=== PATIENT | female | born 1995 | race Caucasian/White ===

== ENCOUNTER 2018-01-02 22:28 | Emergency (ER) | payer SELFPAY ==
[2018-01-02 22:47] VITALS: BP 132/75
--- NOTE | 2018-01-02 23:04 | EDM.PDOC ---
ED HPI GENERAL MEDICAL PROBLEM - General Chief Complaint: General Stated Complaint: SOB Time Seen by Provider: 01/02/18 22:34 Source of Information: Reports: Patient History Limitations: Reports: No Limitations - History of Present Illness INITIAL COMMENTS - FREE TEXT/NARRATIVE: One day history of sinus pressure, ear pressure, sore throat, body aches, and heavy chest. No cough/runny nose reported. Feels painful/tight at base of neck. Denies swelling of tongue/cough/wheezing. Smoker. No one else sick at home. No GI/ changes. No rashes. Treatments PAYROLL LEAD: Reports: Other (see below) Other Treatments PAYROLL LEAD: took mucinex at 1430. - Related Data Allergies Allergy/AdvReac Type Severity Reaction Status Date / Time amoxicillin [Amoxicillin] Allergy Cannot Verified 09/02/15 18:38 Remember hydrocodone Allergy Itching Verified 09/02/15 18:38 Penicillins Allergy Cannot Verified 09/02/15 18:38 Remember Home Meds: Home Meds Norethindrone-Ethinyl Estrad [Alyacen] 1 each PO ASDIRECTED 01/02/18 [History] Past Medical History HEENT History: Reports: None. 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: Other (See Below) Other UX UI DESIGNER History: Current Norplant with LMP on 07/07/15 with patient getting monthly menses despite her Norplant, right ovarian cyst in 2008 with spontaneous resolution Musculoskeletal History: Reports: None Neurological History: Reports: Concussion Psychiatric History: Reports: Anxiety, Depression Endocrine/Metabolic History: Reports: None Hematologic History: Reports: None Immunologic History: Reports: None Oncologic (Cancer) History: Reports: None - Infectious Disease History Infectious Disease History: Reports: Chicken Pox - Past Surgical History Head Surgeries/Procedures: Reports: None HEENT Surgical History: Reports: Oral Surgery Cardiovascular Surgical History: Reports: None Respiratory Surgical History: Reports: None GI Surgical History: Reports: None Female Surgical History: Reports: Other (See Below) Endocrine Surgical History: Reports: None Neurological Surgical History: Reports: None Musculoskeletal Surgical History: Reports: None Oncologic Surgical History: Reports: None Dermatological Surgical History: Reports: None - Past Imaging History Past Imaging History: Reports: CAT Scan, Ultrasound Social & Family History - Tobacco Use Smoking Status *Q: Current Every Day Smoker Years of Tobacco use: 10 Packs/Tins Daily: 0.5 - Caffeine Use Caffeine Use: Reports: Coffee (3 cups per day), Soda (1 soda 2 times per week). Denies: Energy Drinks, Tea - Living Situation & Occupation Living situation: Reports: with Family Occupation: Employed ED ROS GENERAL - Review of Systems Review Of Systems: See Below Constitutional: Reports: Chills, Malaise. Denies: Fever, Diaphoresis HEENT: Reports: Ear Pain, Sinus Problem (pressure), Throat Pain. Denies: Ear Discharge, Eye Discharge, Eye Pain, Throat Swelling, Vertigo, Vision Change Respiratory: Reports: Pleuritic Chest Pain (has generalized body aches, chest aches get worse with deep breath), Other (chest feels heavy). Denies: Shortness of Breath, Wheezing, Cough, Sputum, Hemoptysis Cardiovascular: Denies: Dyspnea on Exertion, Lightheadedness, Palpitations, Syncope GI/Abdominal: Reports: No Symptoms : Reports: No Symptoms Musculoskeletal: Reports: Muscle Pain (generalized aches) Skin: Reports: No Symptoms Neurological: Reports: No Symptoms. Denies: Headache Psychiatric: Reports: No Symptoms Hematologic/Lymphatic: Reports: No Symptoms. Denies: Swollen Glands Immunologic: Reports: No Symptoms ED EXAM, GENERAL - Physical Exam Exam: See Below Exam Limited By: No Limitations General Appearance: Alert, WD/WN, Other (looks uncomfortable, no acute distress however) Eye Exam: Bilateral Eye: EOMI, PERRL Ears: Normal External Exam, Normal Canal, Hearing Grossly Normal, Normal TMs Nose: No: Nasal Deformity, Nasal Swelling, Nasal Drainage Throat/Mouth: Normal Inspection, Normal Lips, Normal Teeth, Normal Gums, Normal Oropharynx, Normal Voice, No Airway Compromise Head: Atraumatic, Normocephalic Neck: Normal Inspection, Supple, Non-Tender, Full Range of Motion. No: Lymphadenopathy (L), Lymphadenopathy (R) Respiratory/Chest: No Respiratory Distress, Lungs Clear, Normal Breath Sounds, No Accessory Muscle Use Cardiovascular: Normal Peripheral Pulses, Regular Rate, Rhythm, No Murmur Peripheral Pulses: 2+: Radial (L), Radial (R) GI/Abdominal: Normal Bowel Sounds, Soft, Non-Tender, No Distention (Female) Exam: Deferred Rectal (Female) Exam: Deferred Back Exam: No: CVA Tenderness (L), CVA Tenderness (R) Extremities: Normal Inspection, Normal Range of Motion, Normal Capillary Refill Neurological: Alert, Oriented, Normal Cognition, Normal Gait, No Motor/Sensory Deficits Psychiatric: Normal Affect, Normal Mood Skin Exam: Warm, Dry, Intact, Normal Color Course - Vital Signs Last Recorded V/S: Last Vital Signs Temp 36.7 C 01/02/18 22:45 Pulse 85 01/02/18 22:45 Resp 16 01/02/18 22:45 BP 132/75 01/02/18 22:45 Pulse Ox 100 01/02/18 22:45 - Orders/Labs/Meds Orders: Active Orders 24 hr Category Date Time Status RT Aerosol Therapy [RC] ASDIRECTED Care 01/02/18 23:24 Ordered Chest 2V [CR] Stat Exams 01/02/18 23:07 Ordered CULTURE STREP A CONFIRMATION [RM] Stat Lab 01/02/18 22:40 Results HCG QUALITATIVE,URINE [URCHEM] Stat Lab 01/02/18 23:15 Received STREP SCRN A RAPID W CULT CONF [RM] Stat Lab 01/02/18 22:40 Results UA W/MICROSCOPIC [URIN] Stat Lab 01/02/18 23:15 Ordered Labs: Laboratory Tests 01/02/18 01/02/18 01/02/18 Range/Units 23:07 23:07 23:07 WBC 12.2 H (4.0-10.2) K/uL RBC 4.10 (3.77-5.09) M/uL Hgb 13.0 (11.7-15.5) g/dL Hct 38.8 (34.0-46.0) % MCV 94.6 D (84.0-98.0) fL MCH 31.7 (28.2-33.3) pg MCHC 33.5 (31.7-36.0) g/dL RDW 12.0 (11.2-14.1) % Plt Count 192 (150-350) K/uL Neut % (Auto) 78.8 (45.0-80.0) % Lymph % (Auto) 11.9 (10.0-50.0) % Garza % (Auto) 7.0 (2.0-14.0) % Eos % (Auto) 2.1 (0.0-5.0) % Baso % (Auto) 0.2 (0.0-2.0) % Neut # (Auto) 9.59 H (1.40-7.00) K/uL Lymph # (Auto) 1.45 (0.50-3.50) K/uL Garza # (Auto) 0.85 (0.00-1.00) K/uL Eos # (Auto) 0.26 (0.00-0.50) K/uL Baso # (Auto) 0.02 (0.00-0.20) K/uL Sodium 139 (136-145) mmol/L Potassium 3.8 (3.5-5.1) mmol/L Chloride 106 (98-107) mmol/L Carbon Dioxide 24.2 (21.0-32.0) mmol/L BUN 7 (7-18) mg/dL Creatinine 0.83 (0.51-1.17) mg/dL Est Cr Clr Drug Dosing TNP Estimated GFR (MDRD) > 60 mL/min Glucose 110 H (74-106) mg/dL Calcium 8.9 (8.5-10.1) mg/dL Total Bilirubin 0.3 (0.2-1.0) mg/dL AST 15 (15-37) U/L ALT 17 (12-78) U/L Alkaline Phosphatase 49 (46-116) IU/L Total Protein 8.2 (6.4-8.2) g/dL Albumin 3.9 (3.4-5.0) g/dL Specimen Type Urine Color Urine Appearance Urine pH (5.0-9.0) Ur Specific [place] (1.005-1.030) Urine Protein (NEGATIVE) mg/dL Urine Glucose (UA) (NEGATIVE) mg/dL Urine Ketones (NEGATIVE) mg/dL Urine Occult Blood (NEGATIVE) Urine Nitrite (NEGATIVE) Urine Bilirubin (NEGATIVE) Urine Urobilinogen (0.2-1.0) E.U./dL Ur Leukocyte Esterase (NEGATIVE) Urine RBC /HPF Urine WBC /HPF Ur Epithelial Cells /LPF Urine Bacteria (NONE TO FEW) /HPF Urine Mucus (NEGATIVE) /LPF Urine Yeast (NEGATIVE) /HPF Urine HCG, Qual Monoscreen Negative (NEGATIVE) 01/02/18 01/02/18 Range/Units 23:15 23:15 WBC (4.0-10.2) K/uL RBC (3.77-5.09) M/uL Hgb (11.7-15.5) g/dL Hct (34.0-46.0) % MCV (84.0-98.0) fL MCH (28.2-33.3) pg MCHC (31.7-36.0) g/dL RDW (11.2-14.1) % Plt Count (150-350) K/uL Neut % (Auto) (45.0-80.0) % Lymph % (Auto) (10.0-50.0) % Garza % (Auto) (2.0-14.0) % Eos % (Auto) (0.0-5.0) % Baso % (Auto) (0.0-2.0) % Neut # (Auto) (1.40-7.00) K/uL Lymph # (Auto) (0.50-3.50) K/uL Garza # (Auto) (0.00-1.00) K/uL Eos # (Auto) (0.00-0.50) K/uL Baso # (Auto) (0.00-0.20) K/uL Sodium (136-145) mmol/L Potassium (3.5-5.1) mmol/L Chloride (98-107) mmol/L Carbon Dioxide (21.0-32.0) mmol/L BUN (7-18) mg/dL Creatinine (0.51-1.17) mg/dL Est Cr Clr Drug Dosing Estimated GFR (MDRD) mL/min Glucose (74-106) mg/dL Calcium (8.5-10.1) mg/dL Total Bilirubin (0.2-1.0) mg/dL AST (15-37) U/L ALT (12-78) U/L Alkaline Phosphatase (46-116) IU/L Total Protein (6.4-8.2) g/dL Albumin (3.4-5.0) g/dL Specimen Type Urinblad Urine Color Yellow Urine Appearance Clear Urine pH 7.0 (5.0-9.0) Ur Specific [place] 1.020 (1.005-1.030) Urine Protein Negative (NEGATIVE) mg/dL Urine Glucose (UA) Negative (NEGATIVE) mg/dL Urine Ketones Negative (NEGATIVE) mg/dL Urine Occult Blood Trace-lysed H (NEGATIVE) Urine Nitrite Negative (NEGATIVE) Urine Bilirubin Negative (NEGATIVE) Urine Urobilinogen 0.2 (0.2-1.0) E.U./dL Ur Leukocyte Esterase Negative (NEGATIVE) Urine RBC 0-5 /HPF Urine WBC 0-5 /HPF Ur Epithelial Cells Few /LPF Urine Bacteria Few (NONE TO FEW) /HPF Urine Mucus Few H (NEGATIVE) /LPF Urine Yeast Rare H (NEGATIVE) /HPF Urine HCG, Qual Negative Monoscreen (NEGATIVE) Meds: Medications Discontinued Medications Generic Name Dose Route Start Last Admin Trade Name Jerry PRN Reason Stop Dose Admin Acetaminophen 650 mg 01/02/18 23:24 01/02/18 23:33 Tylenol PO 01/02/18 23:25 650 mg NOW ONE Administration Albuterol/Ipratropium 3 ml 01/02/18 23:24 01/02/18 23:35 Duoneb 3.0-0.5 Mg/3 Ml NEB 01/02/18 23:25 3 ml ONETIME ONE Administration - Radiology Interpretation Free Text/Narrative:: chest film unremarkable for infiltrate/acute abnormalities - Re-Assessments/Exams Free Text/Narrative Re-Assessment/Exam: 01/02/18 23:32 Strep screen ordered. Negative. Additional testing ordered, including basic labs, Garza test, chest xray. Patient given Tylenol. Neb given to see if any subjective change in sensation chest heaviness. 01/03/18 00:08 Patient felt like neb improved chest heaviness. VS remained stable. Sats 100%. No signs of respiratory compromise. Garza negative. WBC very mildly elevated. Labs otherwise overall unremarkable. Suspect acute viral syndrome based on history/exam. Patient given work note for 48 hrs to stay home due to illness as she works in a [employer]. Will go home with Ventolin inhaler to help with sensation of chest heaviness/tightness. Smoking cessation encouraged. Precautions reviewed. To follow up as needed. Strep culture pending Departure - Departure Time of Disposition: 00:11 Disposition: Home, Self-Care 01 Condition: Good Clinical Impression: Viral syndrome - Discharge Information Instructions: Viral Illness, Adult Referrals: PCP,Unknown [Primary Care Provider] - Forms: ED Department Discharge, ED Return to Work/School Form Additional Instructions: Watch for changes. Follow up as needed if you have problems or this does not appear to follow a normal viral course. If your strep culture is positive we will contact you. - My Orders Last 24 Hours: My Active Orders 01/02/18 22:40 CULTURE STREP A CONFIRMATION [RM] Stat STREP SCRN A RAPID W CULT CONF [RM] Stat 01/02/18 23:07 Chest 2V [CR] Stat 01/02/18 23:15 HCG QUALITATIVE,URINE [URCHEM] Stat UA W/MICROSCOPIC [URIN] Stat 01/02/18 23:24 RT Aerosol Therapy [RC] ASDIRECTED - Assessment/Plan Last 24 Hours: My Active Orders 01/02/18 22:40 CULTURE STREP A CONFIRMATION [RM] Stat STREP SCRN A RAPID W CULT CONF [RM] Stat 01/02/18 23:07 Chest 2V [CR] Stat 01/02/18 23:15 HCG QUALITATIVE,URINE [URCHEM] Stat UA W/MICROSCOPIC [URIN] Stat 01/02/18 23:24 RT Aerosol Therapy [RC] ASDIRECTED
[2018-01-02 23:25] LABS: CHLORIDE,CL 106 mmol/L (98-107); SODIUM,NA 139 mmol/L (136-145)
[2018-01-02] MEDS: Acetaminophen 325 MG Tab PO ONE (23:33)
[2018-01-02] MEDS: Albuterol/Ipratropium 3.0-0.5 MG/3 ML Neb Soln NEB ONE (23:35)
== END 2018-01-03 00:30 | disposition home or self-care (01) ==
LOC: LL.ED 22:28
DX: B34.9 Viral infection, unspecified (principal); K21.9 Gastro-esophageal reflux disease without esophagitis; F17.210 Nicotine dependence, cigarettes, uncomplicated; Z88.0 Allergy status to penicillin; Z88.1 Allergy status to other antibiotic agents; Z88.5 Allergy status to narcotic agent; Z87.442 Personal history of urinary calculi
CPT/HCPCS: 36415; 71046; 80053; 81001; 81025; 85025; 86308; 87081; 87430; 94640; 99283; A9270

== ENCOUNTER 2018-07-26 17:00 | Emergency (ER) | payer BC, OTHER ==
[2018-07-26 17:19] VITALS: BP 136/77
[2018-07-26] MEDS ORDERED: Sodium Chloride 0.9% 10 ML Syringe FLUSH PRN (17:26)
[2018-07-26] MEDS ORDERED: Sodium Chloride 0.9% 1,000 ML IV SCH (17:30)
--- NOTE | 2018-07-26 17:34 | EDM.PDOC ---
ED HPI GENERAL MEDICAL PROBLEM - General Chief Complaint: General Stated Complaint: Headache, S/P epidural pain injection Time Seen by Provider: 07/26/18 17:00 Source of Information: Reports: Patient History Limitations: Reports: No Limitations - History of Present Illness INITIAL COMMENTS - FREE TEXT/NARRATIVE: Patient is a fifth 23-year-old female seen in the ER with chief complaint of severe headache patient states that she had an epidural injection yesterday for chronic back pain. Onset: Sudden Duration: Day(s): (One day ago), Getting Worse Location: Reports: Head Quality: Reports: Ache, Throbbing Severity: Moderate Improves with: Reports: None Worsens with: Reports: Other (Light) Context: Reports: Activity Associated Symptoms: Reports: Headaches Headache Pain Score (Numeric/FACES): 8 - Related Data Allergies Allergy/AdvReac Type Severity Reaction Status Date / Time amoxicillin [Amoxicillin] Allergy Cannot Verified 07/26/18 17:17 Remember hydrocodone Allergy Itching Verified 07/26/18 17:17 Penicillins Allergy Cannot Verified 07/26/18 17:17 Remember Home Meds: Home Meds Acetaminophen [Tylenol] 650 mg PO Q6HR PRN 07/26/18 [History] Acetaminophen/Caffeine [Excedrin Tension Headache Cplt] 1 each PO DAILY PRN [History] Baclofen 10 mg PO TID PRN 07/26/18 [History] Cyclobenzaprine [Flexeril] 5 mg PO Q12HR PRN 07/26/18 [History] Ibuprofen 800 mg PO TID PRN 07/26/18 [History] Loratadine 10 mg PO DAILY PRN 07/26/18 [History] Meloxicam 15 mg PO BEDTIME 07/26/18 [History] Past Medical History HEENT History: Reports: None. 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 History: Current Norplant with LMP on 07/07/15 with patient getting monthly menses despite her Norplant, right ovarian cyst in 2008 with spontaneous resolution Musculoskeletal History: Reports: None Neurological History: Reports: Concussion Psychiatric History: Reports: Anxiety, Depression Endocrine/Metabolic History: Reports: None Hematologic History: Reports: None Immunologic History: Reports: None Oncologic (Cancer) History: Reports: None - Infectious Disease History Infectious Disease History: Reports: Chicken Pox - Past Surgical History Head Surgeries/Procedures: Reports: None HEENT Surgical History: Reports: Oral Surgery Cardiovascular Surgical History: Reports: None Respiratory Surgical History: Reports: None GI Surgical History: Reports: None Female Surgical History: Reports: Other (See Below) Endocrine Surgical History: Reports: None Neurological Surgical History: Reports: None Musculoskeletal Surgical History: Reports: None Oncologic Surgical History: Reports: None Dermatological Surgical History: Reports: None - Past Imaging History Past Imaging History: Reports: CAT Scan, Ultrasound Social & Family History - Caffeine Use Caffeine Use: Reports: Coffee (3 cups per day), Soda (1 soda 2 times per week). Denies: Energy Drinks, Tea - Living Situation & Occupation Living situation: Reports: with Family Occupation: Employed ED ROS GENERAL - Review of Systems Review Of Systems: See Below Constitutional: Reports: No Symptoms HEENT: Reports: No Symptoms Respiratory: Reports: No Symptoms, Other (Smoker) Cardiovascular: Reports: No Symptoms Endocrine: Reports: No Symptoms GI/Abdominal: Reports: No Symptoms : Reports: No Symptoms Musculoskeletal: Reports: No Symptoms Skin: Reports: No Symptoms Neurological: Reports: Headache Psychiatric: Reports: No Symptoms Hematologic/Lymphatic: Reports: No Symptoms Immunologic: Reports: No Symptoms ED EXAM, GENERAL - Physical Exam Exam: See Below Exam Limited By: No Limitations General Appearance: Alert, WD/WN, No Apparent Distress Nose: Normal Inspection, Normal Mucosa, No Blood Throat/Mouth: Normal Inspection, Normal Lips, Normal Teeth, Normal Gums, Normal Oropharynx, Normal Voice, No Airway Compromise Head: Atraumatic, Normocephalic Neck: Normal Inspection, Supple, Non-Tender, Full Range of Motion Respiratory/Chest: No Respiratory Distress, Lungs Clear, Normal Breath Sounds, No Accessory Muscle Use, Chest Non-Tender Cardiovascular: Normal Peripheral Pulses, Regular Rate, Rhythm, No Edema, No Gallop, No JVD, No Murmur, No Rub GI/Abdominal: Normal Bowel Sounds, Soft, Non-Tender, No Organomegaly, No Distention, No Abnormal Bruit, No Mass (Female) Exam: Deferred Rectal (Female) Exam: Deferred Back Exam: Other (Headaches) Extremities: Normal Inspection, Normal Range of Motion, Non-Tender, Normal Capillary Refill, No Pedal Edema Neurological: Alert, Oriented, CN II-XII Intact, Normal Cognition, Normal Reflexes, Other (Headaches) Psychiatric: Normal Affect, Normal Mood Skin Exam: Warm, Dry, Intact, Normal Color, No Rash Course - Vital Signs Last Recorded V/S: Last Vital Signs Temp 97.8 F 07/26/18 17:00 Pulse 90 07/26/18 17:00 Resp 16 07/26/18 17:00 BP 136/77 07/26/18 17:00 Pulse Ox 100 07/26/18 17:00 - Orders/Labs/Meds Orders: Active Orders 24 hr Category Date Time Status Sodium Chloride 0.9% [Normal Saline] 1,000 ml Med 07/26/18 17:30 Active IV ASDIRECTED Sodium Chloride 0.9% [Saline Flush] Med 07/26/18 17:26 Active 10 ml FLUSH ASDIRECTED PRN Saline Lock Insert [OM.PC] Stat Oth 07/26/18 17:27 Ordered Medication Orders Sodium Chloride (Normal Saline) 1,000 mls @ 999 mls/hr IV ASDIRECTED CHAN Sodium Chloride (Saline Flush) 10 ml FLUSH ASDIRECTED PRN PRN Reason: Keep Vein Open Labs: Laboratory Tests 07/26/18 07/26/18 Range/Units 17:32 17:32 WBC 8.2 (4.0-10.2) K/uL RBC 4.32 (3.77-5.09) M/uL Hgb 13.7 (11.7-15.5) g/dL Hct 41.3 (34.0-46.0) % MCV 95.6 (84.0-98.0) fL MCH 31.7 (28.2-33.3) pg MCHC 33.2 (31.7-36.0) g/dL RDW 12.0 (11.2-14.1) % Plt Count 217 (150-350) K/uL Neut % (Auto) 67.9 (45.0-80.0) % Lymph % (Auto) 23.4 (10.0-50.0) % [place] % (Auto) 6.5 (2.0-14.0) % Eos % (Auto) 2.1 (0.0-5.0) % Baso % (Auto) 0.1 (0.0-2.0) % Neut # (Auto) 5.58 (1.40-7.00) K/uL Lymph # (Auto) 1.92 (0.50-3.50) K/uL [place] # (Auto) 0.53 (0.00-1.00) K/uL Eos # (Auto) 0.17 (0.00-0.50) K/uL Baso # (Auto) 0.01 (0.00-0.20) K/uL Sodium 141 (136-145) mmol/L Potassium 3.7 (3.5-5.1) mmol/L Chloride 104 (98-107) mmol/L Carbon Dioxide 26.1 (21.0-32.0) mmol/L BUN 9 (7-18) mg/dL Creatinine 0.68 (0.51-1.17) mg/dL Est Cr Clr Drug Dosing TNP Estimated GFR (MDRD) > 60 mL/min Glucose 98 (74-106) mg/dL Calcium 9.6 (8.5-10.1) mg/dL Meds: Medications Generic Name Dose Route Start Last Admin Trade Name Freq PRN Reason Stop Dose Admin Sodium Chloride 1,000 mls @ 999 mls/hr 07/26/18 17:30 Normal Saline IV ASDIRECTED CHAN Sodium Chloride 10 ml 07/26/18 17:26 Saline Flush FLUSH ASDIRECTED PRN Keep Vein Open Departure - Departure Time of Disposition: 19:03 Disposition: Home, Self-Care 01 Clinical Impression: Persistent headaches - Discharge Information *PRESCRIPTION DRUG MONITORING PROGRAM REVIEWED*: No *COPY OF PRESCRIPTION DRUG MONITORING REPORT IN PATIENT CHANEL: No Instructions: Spinal Anesthesia and Epidural Anesthesia, Care After Referrals: Piedad Borrego PA-C [Primary Care Provider] - Forms: ED Department Discharge Care Plan Goals: ED HPI GENERAL MEDICAL PROBLEM - General Chief Complaint: General Stated Complaint: Headache, S/P epidural pain injection - History of Present Illness INITIAL COMMENTS - FREE TEXT/NARRATIVE: Patient is a fifth 23-year-old female seen in the ER with chief complaint of severe headache patient states that she had an epidural injection yesterday for chronic back pain. Onset: Sudden Duration: Day(s): (One day ago), Getting Worse Location: Reports: Head Quality: Reports: Ache, Throbbing Severity: Moderate Improves with: Reports: None Worsens with: Reports: Other (Light) Context: Reports: Activity Associated Symptoms: Reports: Headaches Headache Pain Score (Numeric/FACES): 8 - Related Data Allergies Allergy/AdvReac Type Severity Reaction Status Date / Time amoxicillin [Amoxicillin] Allergy Cannot Verified 07/26/18 17:17 Remember hydrocodone Allergy Itching Verified 07/26/18 17:17 Penicillins Allergy Cannot Verified 07/26/18 17:17 Remember Home Meds: Home Meds Acetaminophen [Tylenol] 650 mg PO Q6HR PRN 07/26/18 [History] Acetaminophen/Caffeine [Excedrin Tension Headache Cplt] 1 each PO DAILY PRN [History] Baclofen 10 mg PO TID PRN 07/26/18 [History] Cyclobenzaprine [Flexeril] 5 mg PO Q12HR PRN 07/26/18 [History] Ibuprofen 800 mg PO TID PRN 07/26/18 [History] Loratadine 10 mg PO DAILY PRN 07/26/18 [History] Meloxicam 15 mg PO BEDTIME 07/26/18 [History] Past Medical History HEENT History: Reports: None. 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 History: Current Norplant with LMP on 07/07/15 with patient getting monthly menses despite her Norplant, right ovarian cyst in 2008 with spontaneous resolution Musculoskeletal History: Reports: None Neurological History: Reports: Concussion Psychiatric History: Reports: Anxiety, Depression Endocrine/Metabolic History: Reports: None Hematologic History: Reports: None Immunologic History: Reports: None Oncologic (Cancer) History: Reports: None - Infectious Disease History Infectious Disease History: Reports: Chicken Pox - Past Surgical History Head Surgeries/Procedures: Reports: None HEENT Surgical History: Reports: Oral Surgery Cardiovascular Surgical History: Reports: None Respiratory Surgical History: Reports: None GI Surgical History: Reports: None Female Surgical History: Reports: Other (See Below) Endocrine Surgical History: Reports: None Neurological Surgical History: Reports: None Musculoskeletal Surgical History: Reports: None Oncologic Surgical History: Reports: None Dermatological Surgical History: Reports: None - Past Imaging History Past Imaging History: Reports: CAT Scan, Ultrasound Social & Family History - Caffeine Use Caffeine Use: Reports: Coffee (3 cups per day), Soda (1 soda 2 times per week). Denies: Energy Drinks, Tea - Living Situation & Occupation Living situation: Reports: with Family Occupation: Employed ED ROS GENERAL - Review of Systems Review Of Systems: See Below Constitutional: Reports: No Symptoms HEENT: Reports: No Symptoms Respiratory: Reports: No Symptoms, Other (Smoker) Cardiovascular: Reports: No Symptoms Endocrine: Reports: No Symptoms GI/Abdominal: Reports: No Symptoms : Reports: No Symptoms Musculoskeletal: Reports: No Symptoms Skin: Reports: No Symptoms Neurological: Reports: Headache Psychiatric: Reports: No Symptoms Hematologic/Lymphatic: Reports: No Symptoms Immunologic: Reports: No Symptoms ED EXAM, GENERAL - Physical Exam Exam: See Below Exam Limited By: No Limitations General Appearance: Alert, WD/WN, No Apparent Distress Nose: Normal Inspection, Normal Mucosa, No Blood Throat/Mouth: Normal Inspection, Normal Lips, Normal Teeth, Normal Gums, Normal Oropharynx, Normal Voice, No Airway Compromise Head: Atraumatic, Normocephalic Neck: Normal Inspection, Supple, Non-Tender, Full Range of Motion Respiratory/Chest: No Respiratory Distress, Lungs Clear, Normal Breath Sounds, No Accessory Muscle Use, Chest Non-Tender Cardiovascular: Normal Peripheral Pulses, Regular Rate, Rhythm, No Edema, No Gallop, No JVD, No Murmur, No Rub GI/Abdominal: Normal Bowel Sounds, Soft, Non-Tender, No Organomegaly, No Distention, No Abnormal Bruit, No Mass (Female) Exam: Deferred Rectal (Female) Exam: Deferred Back Exam: Other (Headaches) Extremities: Normal Inspection, Normal Range of Motion, Non-Tender, Normal Capillary Refill, No Pedal Edema Neurological: Alert, Oriented, CN II-XII Intact, Normal Cognition, Normal Reflexes, Other (Headaches) Psychiatric: Normal Affect, Normal Mood Skin Exam: Warm, Dry, Intact, Normal Color, No Rash Course - Vital Signs Last Recorded V/S: Last Vital Signs Temp 97.8 F 07/26/18 17:00 Pulse 90 07/26/18 17:00 Resp 16 07/26/18 17:00 BP 136/77 07/26/18 17:00 Pulse Ox 100 07/26/18 17:00 - Orders/Labs/Meds Orders: Active Orders 24 hr Category Date Time Status BASIC METABOLIC PANEL,BMP [CHEM] Stat Lab 07/26/18 17:27 Ordered CBC WITH AUTO DIFF [HEME] Stat Lab 07/26/18 17:27 Ordered Sodium Chloride 0.9% [Normal Saline] 1,000 ml Med 07/26/18 17:30 Ordered IV ASDIRECTED Sodium Chloride 0.9% [Saline Flush] Med 07/26/18 17:26 Ordered 10 ml FLUSH ASDIRECTED PRN Saline Lock Insert [OM.PC] Stat Oth 07/26/18 17:27 Ordered Medication Orders Sodium Chloride (Saline Flush) 10 ml FLUSH ASDIRECTED PRN PRN Reason: Keep Vein Open Meds: Medications Generic Name Dose Route Start Last Admin Trade Name Freq PRN Reason Stop Dose Admin Sodium Chloride 10 ml 07/26/18 17:26 Saline Flush FLUSH ASDIRECTED PRN Keep Vein Open Departure - Departure Clinical Impression: Persistent headaches - Discharge Information *PRESCRIPTION DRUG MONITORING PROGRAM REVIEWED*: No *COPY OF PRESCRIPTION DRUG MONITORING REPORT IN PATIENT CHANEL: No Instructions: Spinal Anesthesia and Epidural Anesthesia, Care After Referrals: Piedad Borrego PAOsorioC [Primary Care Provider] - - My Orders Last 24 Hours: My Active Orders 07/26/18 17:26 Sodium Chloride 0.9% [Saline Flush] 10 ml FLUSH ASDIRECTED PRN 07/26/18 17:27 BASIC METABOLIC PANEL,BMP [CHEM] Stat CBC WITH AUTO DIFF [HEME] Stat Saline Lock Insert [OM.PC] Stat 07/26/18 17:30 Sodium Chloride 0.9% [Normal Saline] 1,000 ml IV ASDIRECTED - Assessment/Plan Last 24 Hours: My Active Orders 07/26/18 17:26 Sodium Chloride 0.9% [Saline Flush] 10 ml FLUSH ASDIRECTED PRN 07/26/18 17:27 BASIC METABOLIC PANEL,BMP [CHEM] Stat CBC WITH AUTO DIFF [HEME] Stat Saline Lock Insert [OM.PC] Stat 07/26/18 17:30 Sodium Chloride 0.9% [Normal Saline] 1,000 ml IV ASDIRECTED IV and CBC and BMP were done at this time we will start fluids at 999 - My Orders Last 24 Hours: My Active Orders 07/26/18 17:26 Sodium Chloride 0.9% [Saline Flush] 10 ml FLUSH ASDIRECTED PRN 07/26/18 17:27 Saline Lock Insert [OM.PC] Stat 07/26/18 17:30 Sodium Chloride 0.9% [Normal Saline] 1,000 ml IV ASDIRECTED - Assessment/Plan Last 24 Hours: My Active Orders 07/26/18 17:26 Sodium Chloride 0.9% [Saline Flush] 10 ml FLUSH ASDIRECTED PRN 07/26/18 17:27 Saline Lock Insert [OM.PC] Stat 07/26/18 17:30 Sodium Chloride 0.9% [Normal Saline] 1,000 ml IV ASDIRECTED
[2018-07-26 17:55] LABS: CHLORIDE,CL 104 mmol/L (98-107); SODIUM,NA 141 mmol/L (136-145)
== END 2018-07-26 19:40 | disposition home or self-care (01) ==
LOC: LL.ED 17:00
DX: R51 Headache (principal); M54.9 Dorsalgia, unspecified; G89.29 Other chronic pain; Z88.0 Allergy status to penicillin; Z88.8 Allergy status to other drugs, medicaments and biological substances
CPT/HCPCS: 36415; 80048; 85025; 96360; 99284; J7030

== ENCOUNTER 2020-07-10 18:02 | Emergency (ER) | payer BC, OTHER ==
[2020-07-10 18:16] VITALS: BP 120/72; PULSE 74
--- NOTE | 2020-07-10 18:16 | EDM.PDOC ---
ED HPI GENERAL MEDICAL PROBLEM - General Chief Complaint: General Stated Complaint: HEADACHE Time Seen by Provider: 07/10/20 18:15 Source of Information: Reports: Patient, Old Records ([facility] EMR. No paper hospital chart available.) History Limitations: Reports: No Limitations - History of Present Illness INITIAL COMMENTS - FREE TEXT/NARRATIVE: The patient was brought to the emergency room via private automobile by her friend for evaluation of bilateral frontal migraine headache typical of her migraine headaches in the past. She woke up this morning with this headache at about 8 AM with some nausea without emesis at about 4 PM this afternoon. The patient did take Tylenol 650 mg at 3 PM this afternoon with only minimal improvement of her symptoms. The patient also denies any recent fever, cough, wheezing, dyspnea, etc.. No recent history of abdominal pain, heartburn, diarrhea, melena, gross hematochezia, or any food intolerance, including fatty foods, etc.. Onset: Today, Gradual Onset Date: 07/10/20 Onset Time: 08:00 Duration: Constant, Getting Worse Location: Reports: Head. Denies: Face, Neck, Chest, Abdomen, Back, Upper Extremity, Left, Upper Extremity, Right, Radiates to Quality: Reports: Same as Previous Episode, Throbbing Severity: Moderate Improves with: Reports: None Worsens with: Reports: None Context: Reports: Other (As above). Denies: Sick Contact, Trauma Associated Symptoms: Reports: Headaches, Nausea/Vomiting (No emesis). 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 Denies: Allergic Rhinitis, Hard of Hearing, Impaired Vision, Otitis Media, Sinusitis Cardiovascular History: Reports: None. Denies: Afib, Aneurysm, Arrhythmia, Blood Clots/VTE/DVT, CAD, Heart Murmur, High Cholesterol, Hypertension, Syncope Respiratory History: Reports: None. Denies: Asthma, Bronchitis, Recurrent, COPD, Intubation, Difficult, Intubation, Previous, PE, Pneumonia, Recurrent Gastrointestinal History: Reports: Chronic Constipation, GERD. Denies: Bowel Obstruction, Celiac Disease, Cholelithiasis, Colon Polyp, Fecal Incontinence, Gastritis, Inflammatory Bowel Disease, Irritable Bowel Syndrome, PUD Genitourinary History: Reports: Renal Calculus, Other (See Below). Denies: Acute Renal Failure, Chronic Renal Insuffiency, Retention, Urinary, STD, Urinary Incontinence, UTI, Recurrent Other Genitourinary History: Right-sided urolithiasis in 2011 with spontaneous passage. LINE TECHNICIAN History: Reports: . Denies: Dysfunctional Uterine Bleeding, Fibroids, Spontaneous : 1 Para: 1 LMP (Approximate): Other (See Below) Other LINE TECHNICIAN History: LMP 1 week ago. Note previous Norplant therapy between 2013 and 2015. Right ovarian cyst in 2008 with spontaneous resolution. Full term without complications during pregnancies or deliveries. Musculoskeletal History: Reports: Arthritis, Back Pain, Chronic, Osteoarthritis, Other (See Below). Denies: Amputation, Fracture, Gout, RA, SLE Other Musculoskeletal History: Chronic low back pain with previous epidural injections. Apparent coccyx fracture in 2019. Neurological History: Reports: Concussion, Headaches, Chronic, Head Trauma, Migraines. Denies: Neuropathy, Peripheral, Seizure, Vertigo Psychiatric History: Reports: Anxiety, Depression. Denies: Abuse, Victim of, ADD, ADHD, Addiction, Psych Hospitalization(s), PTSD, Suicide Attempt, Suicidal Ideation Endocrine/Metabolic History: Reports: None. Denies: Diabetes, Gestational, Diabetes, Type I, Diabetes, Type II, Diabetes Mellitus, Type 3c, Hypothyroidism, IDDM, Obesity/BMI 30+ Hematologic History: Reports: None. Denies: Anemia, Blood Transfusion(s), Iron Deficiency Immunologic History: Reports: None. Denies: AIDS, HIV, SLE Oncologic (Cancer) History: Reports: None. Denies: Basal Cell Carcinoma, Breast, Cervix, Colon, Hodgkin's Lymphoma, Leukemia, Lung, Lymphoma, Malignant Melanoma, Non-Hodgkin's Lymphoma, Ovarian, Squamous Cell Carcinoma, Uterine Dermatologic History: Reports: None. Denies: Eczema, Psoriasis - Infectious Disease History Infectious Disease History: Reports: Chicken Pox. Denies: C-Difficile, Measles, Meningitis, Mononucleosis, MRSA, Mumps, Novel Coronavirus, Pertussis (Whooping Cough), Rheumatic Fever, Rubella, Scarlet Fever, Shingles, VRE - Past Surgical History Head Surgeries/Procedures: Reports: None HEENT Surgical History: Reports: Oral Surgery, Tonsillectomy, Other (See Below). Denies: Adenoidectomy, Cataract Surgery, Eye Surgery, Laser Surgery, LASIK, Myringotomy w Tube(s), Naso-Sinus Surgery Other HEENT Surgeries/Procedures: [place] teeth extraction x4 in August 2015 with additional teeth extractions. Tonsillectomy in 2019. Cardiovascular Surgical History: Reports: None. Denies: Varicose Respiratory Surgical History: Reports: None. Denies: Thoracentesis GI Surgical History: Reports: None. Denies: Appendectomy, Cholecystectomy, Colonoscopy, EGD, Hernia, Abdominal, Hernia, Inguinal, Hernia Repair/Other, Polypectomy Female Surgical History: Reports: Other (See Below). Denies: Section, D&C, Hysterectomy, Salpingo-Oophorectomy, Tubal Ligation Other Female Surgeries/Procedures: Norplant placement on 08/14/2013. Endocrine Surgical History: Reports: None Neurological Surgical History: Reports: None. Denies: C-Spine, Discectomy, Laminectomy, Lumbar Spine, Sacral Spine, Thoracic Spine Musculoskeletal Surgical History: Reports: None. Denies: Arthroscopic Procedure, Carpal Tunnel, Ganglion Cyst, Joint Replacement, ORIF, Shoulder Surgery Oncologic Surgical History: Reports: None Dermatological Surgical History: Reports: None - Past Imaging History Past Imaging History: Reports: CAT Scan (CT of the abdomen pelvis on 09/02/2015 and in 2008.), Ultrasound (OB ultrasounds.) Social & Family History - Tobacco Use Tobacco Use Status *Q: Current Every Day Tobacco User Tobacco Use Within Last Twelve Months: Cigarettes Years of Tobacco use: 9 Packs/Tins Daily: 0.3 Packs/Tins Daily Comment: Previous maximum use of 1/2 pack/day. Used Tobacco, but Quit: No Smoking Cessation Information Provided To Patient: Yes Second Hand Smoke Exposure: No Second Hand Smoke Education Provided: No - Caffeine Use Caffeine Use: Reports: Coffee (1 cups per day), Soda (12 sodas per day), Tea (1 cup twice a week). Denies: Energy Drinks - Alcohol Use Alcohol Use History: No Days Per Week of Alcohol Use: 0 Number of Drinks Per Day: 3 Number of Drinks Per Day Comment: Usually wine coolers once per month. No previous DWIs, problems with alcohol abuse, etc. Total Drinks Per Week: 0 Alcohol Use in Last Twelve Months: Yes Alcohol Use Frequency: Monthly - Recreational Drug Use Recreational Drug Use: Yes Drug Use in Last 12 Months: No Recreational Drug Type: Reports: Marijuana/Hashish (Experimental at age 15). 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.) ED ROS GENERAL - Review of Systems Review Of Systems: Comprehensive ROS is negative, except as noted in HPI. ED EXAM, GENERAL - Physical Exam Exam: See Below Exam Limited By: No Limitations General Appearance: Alert, WD/WN, No Apparent Distress, Anxious (Moderate) Eye Exam: Bilateral Eye: EOMI, Normal Fundi, Normal Inspection (No nystagmus or vertigo. Moderate bilateral photophobia), PERRL Ears: Normal External Exam, Normal Canal, Hearing Grossly Normal, Normal TMs Nose: Normal Inspection, Normal Mucosa, No Blood Throat/Mouth: Normal Inspection, Normal Lips, Normal Teeth, Normal Gums, Normal Oropharynx, Normal Voice, No Airway Compromise. No: Dysphagia, Perioral Cyanosis Head: Atraumatic, Normocephalic. No: Facial Swelling, Facial Tenderness Neck: Normal Inspection, Supple, Non-Tender, Full Range of Motion. No: Lymphadenopathy (L), Lymphadenopathy (R), Thyromegaly Respiratory/Chest: No Respiratory Distress, Lungs Clear, Normal Breath Sounds, No Accessory Muscle Use, Chest Non-Tender. No: Pleural Rub, Retractions Cardiovascular: Normal Peripheral Pulses, Regular Rate, Rhythm, No Edema, No Gallop, No JVD, No Murmur, No Rub. No: Gallop/S3, Gallop/S4, Friction Rub Peripheral Pulses: 2+: Radial (L), Radial (R) GI/Abdominal: Normal Bowel Sounds, Soft, Non-Tender, No Organomegaly, No Distention, No Abnormal Bruit, No Mass. No: Guarding (Female) Exam: Deferred Rectal (Female) Exam: Deferred Back Exam: Normal Inspection, Full Range of Motion. No: CVA Tenderness (L), CVA Tenderness (R), Muscle Spasm Extremities: Normal Inspection, Normal Range of Motion, Non-Tender, No Pedal Edema, Normal Capillary Refill. No: Rikki's Sign Neurological: Alert, Oriented, CN II-XII Intact, Normal Cognition, Normal Gait, Normal Reflexes, No Motor/Sensory Deficits Psychiatric: Anxious (Moderate), Depressed Mood (Mild to moderate) Skin Exam: Warm, Dry, Intact, Normal Color, No Rash, Stud(s) (Bilateral auricular). No: Diaphoretic, Wound/Incision Course - Vital Signs Last Recorded V/S: Last Vital Signs Temp 36.6 C 07/10/20 18:05 Pulse 74 07/10/20 18:05 Resp 12 07/10/20 18:05 BP 120/72 07/10/20 18:05 Pulse Ox 99 07/10/20 18:05 Vital Signs - 24 hr 07/10/20 18:05 Temperature [ 36.6 C Temporal] Pulse, 74 Peripheral [ Left Pulse Oximetry] Respiratory 12 Rate Blood Pressure 120/72 [Left Upper Arm ] O2 Sat by Pulse 99 Oximetry - Orders/Labs/Meds Orders: Active Orders 24 hr Category Date Time Status Obtain Past Medical Record [OM.PC] Routine Oth 07/10/20 18:16 Active Labs: None Meds: Medications Discontinued Medications Generic Name Dose Route Start Last Admin Trade Name Freq PRN Reason Stop Dose Admin Diazepam 10 mg 07/10/20 18:28 07/10/20 18:50 Valium IM 07/10/20 18:29 10 mg ONETIME ONE Administration Ketorolac Tromethamine 60 mg 07/10/20 18:28 07/10/20 18:49 Toradol IM 07/10/20 18:29 60 mg ONETIME ONE Administration Ondansetron HCl 4 mg 07/10/20 18:27 07/10/20 18:49 Zofran Odt PO 07/10/20 18:28 4 mg ONETIME ONE Administration - Radiology Interpretation Free Text/Narrative:: None Departure - Departure Time of Disposition: 19:20 Disposition: Home, Self-Care 01 Condition: Good Clinical Impression: Tobacco abuse counseling, Mixed anxiety depressive disorder Migraine headache Qualifiers: Migraine type: without aura Intractability: not intractable - Discharge Information *PRESCRIPTION DRUG MONITORING PROGRAM REVIEWED*: Not Applicable *COPY OF PRESCRIPTION DRUG MONITORING REPORT IN PATIENT CHANEL: Not Applicable Instructions: Steps to Quit Smoking, [id number], Health Risks of Smoking, Recurrent Migraine Headache, [id number] Referrals: Piedad Borrego PA-C [Primary Care Provider] - Forms: ED Department Discharge Additional Instructions: 1. Followup with your regular provider in 10-14 days as directed. Bring these discharge instructions with you to that visit. 2. Discuss your weekly chronic headaches and additional every 3-month migraine headaches with your regular provider at the above follow-up visit with consideration of initiation of preventative headache medicine at that time. You may also benefit from a CT scan of the head. 3. Tylenol 650 mg by mouth every 4 hours and/or OTC ibuprofen 2-3 tabs by mouth every 6 hours with food as directed./needed. You may stagger these medications for 48-72 hours only, which essentially means that you are receiving a pain medication about every 2 hours. Next dose of ibuprofen in 6 hours as needed secondary to medications given in the emergency room 4. Ice packs to head and neck, dark and quiet room, etc. as directed until headache resolves. 5. Sedation precautions with no driving, etc. for 18 hours because of emergency room medications. 6. Stop all tobacco use DANIELLE as directed/per provided information and consider contacting Quit LIne, etc.. 7. Immediately after this visit verify that your cellular telephone's voicemail has been activated and is empty. Also verify that your home telephone's answering machine is operating properly and has space to receive messages. Note that it is sometimes necessary for us to be able to contact you at a later date to discuss your medical care. 8. Please remember that we are ALWAYS here for you and want to answer any questions you may have. Feel free to call the hospital any time and we call you back DANIELLE. Sepsis Event Note (ED) - Evaluation Sepsis Screening Result: No Definite Risk - Focused Exam Vital Signs: Vital Signs Temp Pulse Resp BP Pulse Ox 07/10/20 18:05 36.6 C 74 12 120/72 99 - Problem List & Annotations (1) Migraine headache SNOMED Code(s): 58057678 Code(s): G43.909 - MIGRAINE, UNSP, NOT INTRACTABLE, WITHOUT STATUS MIGRAINOSUS Status: Acute Priority: High Onset Date: 07/10/20 Annotation/Comment:: Patient apparently has a long history of chronic recurrent both tension and migraine headaches with tension headaches occurring on a weekly basis with migraine headaches usually on a every 3 monthly basis. Her last emergency room visit for her headache in this facility was on 07/26/2018. The patient did not wish to have an IV for treatment. IM diazepam and IM Toradol given as above with additional oral Zofran ODT for her mild nausea. She apparently has not had a CT scan of her head to this point. Close follow-up by regular provider as per discharge instructions. She apparently does not need a work excuse. Sedation precautions, etc. were given. She would benefit from migraine prophylaxis. Qualifiers: Migraine type: without aura Intractability: not intractable (2) Mixed anxiety depressive disorder SNOMED Code(s): 001494864 Code(s): F41.8 - OTHER SPECIFIED ANXIETY DISORDERS Status: Chronic Priority: Medium Annotation/Comment:: Stable by patient history, although moderate control based on today's exam. Continue to observe closely by her regular provider. (3) Peptic reflux disease SNOMED Code(s): 953468716 Code(s): K21.9 - GASTRO-ESOPHAGEAL REFLUX DISEASE WITHOUT ESOPHAGITIS Status: Chronic Priority: Medium Annotation/Comment:: Stable by patient history. (4) Tobacco abuse counseling SNOMED Code(s): 865425105, 239094117, 551044911 Code(s): Z71.6 - TOBACCO ABUSE COUNSELING Status: Chronic Priority: Medium Annotation/Comment:: Tobacco cessation once again strongly encouraged with information provided at discharge. - Problem List Review Problem List Initiated/Reviewed/Updated: Yes - My Orders Last 24 Hours: My Active Orders 07/10/20 18:16 Obtain Past Medical Record [OM.PC] Routine - Assessment/Plan Last 24 Hours: My Active Orders 07/10/20 18:16 Obtain Past Medical Record [OM.PC] Routine Assessment:: As above. Plan: As above. Extensive precautions were given to the patient, who is in agreement with the treatment plan. See Patient Instructions for further treatment and plan.
[2020-07-10] MEDS ORDERED: Ondansetron 4 MG Tab.DIS PO ONE (18:27)
[2020-07-10] MEDS ORDERED: Ketorolac 60 MG/2 ML SDV IM ONE (18:28)
== END 2020-07-10 19:20 | disposition home or self-care (01) ==
LOC: LL.ED 18:02
DX: G43.009 Migraine without aura, not intractable, without status migrainosus (principal); F41.8 Other specified anxiety disorders; Z88.0 Allergy status to penicillin; Z88.5 Allergy status to narcotic agent; F17.210 Nicotine dependence, cigarettes, uncomplicated; Z71.6 Tobacco abuse counseling
CPT/HCPCS: 96372; 99283; A9270-GY; J1885; J3360